=== PATIENT | male | born 1960 | race African-American/Black ===

== ENCOUNTER 2021-05-10 18:45 | Observation (INO) | payer SELFPAY ==
[2021-05-10 18:51] VITALS: BMI 25.4
[2021-05-10] MEDS ORDERED: ACETAMINOPHEN 1000 MG/100 ML BAG IVPB ONE (20:43)
[2021-05-10] MEDS ORDERED: ACETAMINOPHEN INJECTION 100 ML IVPB ONE (20:45)
[2021-05-10] MEDS ORDERED: morphine CARPU-JECT 4 MG/1 ML DISP.SYRIN IVPUSH ONE (22:47)
[2021-05-10] MEDS ORDERED: morphine SULFATE 4 MG/ML VIAL ONE (23:35)
[2021-05-11] MEDS ORDERED: ACETAMINOPHEN 325 MG TABLET (FP) PO PRN ×2 (02:27→07:31)
[2021-05-11] MEDS ORDERED: LIDOCAINE 5% TOPICAL PATCH TP ONE (02:35)
[2021-05-11 07:39] LABS: BASO % 1.1 % (0-2.0); EOS % 4.8 % (0-4.5); HEMATOCRIT 47.2 % (35.4-49); HEMOGLOBIN 15.4 GM/dL (11.7-16.9); LYMPH % 39.4 % (8-40); MCH 29.4 pg (25.7-33.7); MCHC 32.7 g/dl (32.0-35.9); MEAN CELL VOLUME 89.9 fl (80-96); MEAN PLT VOLUME 9.8 fl (7.5-11.1); MONO % 15.8 % (3.8-10.2); NEUT % 38.9 % (42.8-82.8); PLATELET COUNT 186 10^3/uL (134-434); RBC 5.25 M/mm3 (4.00-5.60); RDW 13.3 % (11.9-15.9)
[2021-05-11 07:46] LABS: CALCIUM 9.4 mg/dL (8.5-10.1)
[2021-05-11 07:47] LABS: ALBUMIN 3.7 g/dl (3.4-5.0); BLOOD UREA NITROGEN 11.6 mg/dL (7-18); MAGNESIUM 2.1 mg/dL (1.8-2.4)
[2021-05-11 07:50] LABS: CREATININE 0.9 mg/dL (0.55-1.3)
[2021-05-11 07:51] LABS: BILIRUBIN,TOTAL 0.4 mg/dL (0.2-1); TOT PROT 7.8 g/dl (6.4-8.2)
[2021-05-11] MEDS ORDERED: LIDOCAINE 5% TOPICAL PATCH ONE (09:20)
[2021-05-11] MEDS: LIDOCAINE 5% TOPICAL PATCH TP SCH (10:12)
[2021-05-11] MEDS ORDERED: ACETAMINOPHEN 1000 MG/100 ML BAG IVPB PRN ×2 (11:55→11:59)
[2021-05-11] MEDS ORDERED: oxyCODONE HCL 5 MG TABLET PO PRN (11:58)
[2021-05-11] MEDS: oxyCODONE HCL 5 MG TABLET PO PRN ×2 (14:28→22:32)
[2021-05-11] MEDS ORDERED: LIDOCAINE PATCH REMOVAL MC ONE (16:00)
[2021-05-11] MEDS ORDERED: LIDOCAINE PATCH REMOVAL MC SCH (22:00)
[2021-05-11] MEDS: ACETAMINOPHEN 325 MG TABLET (FP) PO PRN (22:31)
[2021-05-12 09:21] LABS: HEMATOCRIT 44.4 % (35.4-49); HEMOGLOBIN 14.7 GM/dL (11.7-16.9); MCH 29.6 pg (25.7-33.7); MCHC 33.2 g/dl (32.0-35.9); MEAN CELL VOLUME 89.1 fl (80-96); MEAN PLT VOLUME 9.1 fl (7.5-11.1); PLATELET COUNT 179 10^3/uL (134-434); RBC 4.98 M/mm3 (4.00-5.60); RDW 13.2 % (11.9-15.9)
[2021-05-12 09:35] LABS: CALCIUM 9.1 mg/dL (8.5-10.1)
[2021-05-12 09:36] LABS: ALBUMIN 3.3 g/dl (3.4-5.0); BLOOD UREA NITROGEN 13.9 mg/dL (7-18)
[2021-05-12 09:39] LABS: CREATININE 0.9 mg/dL (0.55-1.3)
[2021-05-12 09:40] LABS: BILIRUBIN,TOTAL 0.5 mg/dL (0.2-1)
[2021-05-12 09:41] LABS: TOT PROT 6.9 g/dl (6.4-8.2)
[2021-05-12] MEDS ORDERED: NAPROXEN 500 MG TABLET PO PRN (10:15)
[2021-05-12] MEDS ORDERED: NAPROXEN 250 MG TABLET PO PRN (10:16)
[2021-05-12] MEDS: LIDOCAINE 5% TOPICAL PATCH TP SCH (10:31)
[2021-05-12] MEDS: oxyCODONE HCL 5 MG TABLET PO PRN (10:34)
[2021-05-12] MEDS: ACETAMINOPHEN 325 MG TABLET (FP) PO PRN (10:35)
[2021-05-12 13:08] LABS: PH,URINE 6.5 (5.0-8.0); URINE APPEARANCE CLEAR; URINE BILIRUBIN NEGATIVE (NEGATIVE); URINE COLOR YELLOW; URINE GLUCOSE (UA) NEGATIVE (NEGATIVE); URINE KETONE NEGATIVE (NEGATIVE); URINE LEUK ESTERASE NEGATIVE (NEGATIVE); URINE NITRITE NEGATIVE (NEGATIVE); URINE PROTEIN NEGATIVE (NEGATIVE)
[2021-05-12 18:20] VITALS: BP 116/70; PULSE 62; TEMP 98
== END 2021-05-12 18:18 | disposition home or self-care (01) ==
LOC: JERFT 18:45 → JERBED 05-11 01:48 → INTOOBSV 05-11 01:48 → J7W 05-11 11:40
PROVIDERS: ADMIT Internal Medicine; ATTEND Internal Medicine
PROC: 3E033NZ Introduction of Analgesics, Hypnotics, Sedatives into Peripheral Vein, Percutaneous Approach (ICD-10-PCS; principal; 2021-05-11)
DX: S22.49XA Multiple fractures of ribs, unspecified side, initial encounter for closed fracture (principal); R26.2 Difficulty in walking, not elsewhere classified; W18.39XA Other fall on same level, initial encounter; Y93.89 Activity, other specified; Y92.002 Bathroom of unspecified non-institutional (private) residence as the place of occurrence of the external cause; R74.01 Elevation of levels of liver transaminase levels; K80.80 Other cholelithiasis without obstruction; Z29.9 Encounter for prophylactic measures, unspecified; F17.210 Nicotine dependence, cigarettes, uncomplicated
CPT/HCPCS: 36415; 71250-TC; 72131-TC; 80053; 80061; 81003; 82962; 83735; 84100; 84443; 85025; 85027; 94010; 97116-GP; 97162-GP; 99285-25; C9803; G0378; J0131; U0003; U0005

== ENCOUNTER 2021-06-07 10:28 | Emergency (ER) | payer SELFPAY ==
[2021-06-07 10:36] VITALS: BMI 24.8
[2021-06-07] MEDS ORDERED: KETOROLAC TROMETHAMINE 30 MG/1 ML VIAL IM ONE (11:08)
[2021-06-07] MEDS ORDERED: KETOROLAC TROMETHAMINE 30 MG/1 ML VIAL ONE (11:09)
[2021-06-07] MEDS ORDERED: AZITHROMYCIN 250 MG TABLET PO ONE (13:04)
[2021-06-07] MEDS ORDERED: AMOXICILLIN 500 MG CAPSULE (FP) PO ONE (13:05)
[2021-06-07 13:09] VITALS: BP 97/69; PULSE 85; TEMP 98.1
[2021-06-07] MEDS ORDERED: AZITHROMYCIN 500 MG TABLET ONE (13:11)
[2021-06-07] MEDS ORDERED: AMOXICILLIN 250 MG CAPSULE ONE (13:12)
== END 2021-06-07 13:22 | disposition home or self-care (01) ==
LOC: JERFT 10:28
PROC: 3E023GC Introduction of Other Therapeutic Substance into Muscle, Percutaneous Approach (ICD-10-PCS; principal; 2021-06-07)
DX: S22.41XA Multiple fractures of ribs, right side, initial encounter for closed fracture (principal); M54.89 Other dorsalgia; W01.0XXA Fall on same level from slipping, tripping and stumbling without subsequent striking against object, initial encounter
CPT/HCPCS: 71046-TC-FY; 99284-25

== ENCOUNTER 2023-07-26 14:43 | Inpatient (IN) | payer OTHER ==
[2023-07-26 14:49] VITALS: BMI 24.8
[2023-07-26 16:03] LABS: BASO % 0.8 % (0-2.0); EOS % 3.9 % (0-4.5); HEMATOCRIT 45.2 % (35.4-49); HEMOGLOBIN 15.5 GM/dL (11.7-16.9); LYMPH % 35.7 % (8-40); MCH 30.5 pg (25.7-33.7); MCHC 34.4 g/dl (32.0-35.9); MEAN CELL VOLUME 88.7 fl (80-96); MEAN PLT VOLUME 8.3 fl (7.5-11.1); MONO % 8.2 % (3.8-10.2); NEUT % 51.4 % (42.8-82.8); PLATELET COUNT 245 10^3/uL (134-434); RDW 13.1 % (11.9-15.9); WHITE BLOOD COUNT 7.4 K/mm3 (4.0-10.0)
[2023-07-26 16:05] LABS: INR 1.03 (0.83-1.09)
[2023-07-26 16:08] LABS: ACTIVATED PTT 36.6 SECONDS (25.2-36.5)
[2023-07-26 16:41] LABS: ALBUMIN 3.8 g/dl (3.4-5.0); BLOOD UREA NITROGEN 13.6 mg/dL (7-18); CALCIUM 9.2 mg/dL (8.5-10.1)
[2023-07-26 16:44] LABS: CREATININE 1.3 mg/dL (0.55-1.3)
[2023-07-26 16:46] LABS: BILIRUBIN,TOTAL 0.4 mg/dL (0.2-1); TOT PROT 7.7 g/dl (6.4-8.2)
[2023-07-26] MEDS ORDERED: IOHEXOL (OMNIPAQUE PO) 12 MG/ML - 500 ML BOTTLE PO ONE (16:59)
[2023-07-26] MEDS ORDERED: ACETAMINOPHEN 325 MG TABLET (FP) PO PRN (20:17)
[2023-07-27 10:00] LABS: BASO % 1.2 % (0-2.0); EOS % 5.6 % (0-4.5); HEMATOCRIT 45.6 % (35.4-49); HEMOGLOBIN 15.2 GM/dL (11.7-16.9); LYMPH % 42.6 % (8-40); MCHC 33.3 g/dl (32.0-35.9); MEAN PLT VOLUME 8.6 fl (7.5-11.1); MONO % 8.9 % (3.8-10.2); NEUT % 41.7 % (42.8-82.8); PLATELET COUNT 216 10^3/uL (134-434); RBC 5.07 M/mm3 (4.00-5.60)
[2023-07-27 10:41] LABS: POTASSIUM 4.4 mmol/L (3.5-5.1)
[2023-07-27 11:02] LABS: BLOOD UREA NITROGEN 13.4 mg/dL (7-18); CALCIUM 9.4 mg/dL (8.5-10.1); MAGNESIUM 2.2 mg/dL (1.8-2.4)
[2023-07-27 11:03] LABS: ALBUMIN 3.6 g/dl (3.4-5.0)
[2023-07-27 11:05] LABS: PHOSPHOROUS 3.6 mg/dL (2.5-4.9)
[2023-07-27 11:06] LABS: CREATININE 1.1 mg/dL (0.55-1.3)
[2023-07-27 11:07] LABS: TOT PROT 7.6 g/dl (6.4-8.2)
[2023-07-27 11:09] LABS: BILIRUBIN,TOTAL 0.6 mg/dL (0.2-1)
[2023-07-27] MEDS: LACTATED RINGERS SOLUTION 1,000 ML/1,000 ML INFUS.BAG IV SCH ×2 (13:28→21:48)
[2023-07-27] MEDS: NICOTINE 14 MG/24 HOURS TOPICAL PATCH TD SCH (13:29)
[2023-07-27] MEDS ORDERED: HEPARIN NA (PORCINE) 5,000 UNITS/ML 1ML VIAL ONE ×2 (16:52→17:43)
[2023-07-27] MEDS ORDERED: LIDOCAINE HCL 1%, 10 MG/ML (20ML VIAL) ONE ×2 (16:52→17:06)
[2023-07-27] MEDS ORDERED: PROPOFOL 20 ML ONE (17:02)
[2023-07-27] MEDS ORDERED: FENTANYL CITRATE/PF 50 MCG/ML VIAL ONE (17:02)
[2023-07-27] MEDS ORDERED: MIDAZOLAM HCL 2 MG/2 ML SINGLE DOSE VIAL ONE (17:02)
[2023-07-27] MEDS ORDERED: oxyCODONE HCL 5 MG TABLET PO PRN (17:06)
[2023-07-27] MEDS ORDERED: ONDANSETRON 4 MG/2 ML VIAL IVPUSH PRN ×2 (17:06→18:58)
[2023-07-27] MEDS ORDERED: ceFAZolin SODIUM 1 GM VIAL ONE (17:18)
[2023-07-27] MEDS ORDERED: LIDOCAINE HCL 2% 100 MG/5 ML DISP.SYRIN ONE (17:18)
[2023-07-27] MEDS: ceFAZolin SODIUM 1 GM VIAL IVPB ONE (17:19)
[2023-07-27] MEDS ORDERED: KETOROLAC TROMETHAMINE 30 MG/1 ML VIAL ONE (17:59)
[2023-07-27] MEDS ORDERED: ONDANSETRON 4 MG/2 ML VIAL ONE (17:59)
[2023-07-27] MEDS: LIDOCAINE HCL 1%, 10 MG/ML (20ML VIAL) INF ONE (18:11)
[2023-07-27] MEDS ORDERED: ACETAMINOPHEN 325 MG TABLET (FP) PO PRN (18:58)
[2023-07-27] MEDS ORDERED: CLOPIDOGREL BISULFATE 75 MG TABLET (FP) ONE (19:03)
[2023-07-27] MEDS: CLOPIDOGREL BISULFATE 75 MG TABLET (FP) PO SCH (19:30)
[2023-07-27 21:54] VITALS: RESP 18
[2023-07-28 06:12] VITALS: BP 140/83; PULSE 95; TEMP 98.1
[2023-07-28] MEDS: oxyCODONE HCL 5 MG TABLET PO PRN (08:34)
[2023-07-28 08:56] LABS: BASO % 0.7 % (0-2.0); HEMATOCRIT 41.2 % (35.4-49); HEMOGLOBIN 13.8 GM/dL (11.7-16.9); LYMPH % 27.6 % (8-40); MCHC 33.6 g/dl (32.0-35.9); MEAN CELL VOLUME 89.3 fl (80-96); MEAN PLT VOLUME 8.5 fl (7.5-11.1); MONO % 8.1 % (3.8-10.2); NEUT % 59.6 % (42.8-82.8); PLATELET COUNT 171 10^3/uL (134-434); RBC 4.61 M/mm3 (4.00-5.60); RDW 13.1 % (11.9-15.9); WHITE BLOOD COUNT 5.6 K/mm3 (4.0-10.0)
[2023-07-28 09:12] LABS: POTASSIUM 4.3 mmol/L (3.5-5.1)
[2023-07-28 09:15] LABS: CALCIUM 8.7 mg/dL (8.5-10.1)
[2023-07-28 09:16] LABS: ALBUMIN 3.1 g/dl (3.4-5.0); BLOOD UREA NITROGEN 19.4 mg/dL (7-18)
[2023-07-28 09:20] LABS: BILIRUBIN,TOTAL 0.5 mg/dL (0.2-1); TOT PROT 6.4 g/dl (6.4-8.2)
[2023-07-28] MEDS: NICOTINE 14 MG/24 HOURS TOPICAL PATCH TD SCH (09:53)
[2023-07-28] MEDS ORDERED: ATORVASTATIN CA 20 MG TABLET (FP) PO SCH (22:00)
== END 2023-07-28 12:14 | disposition home or self-care (01) | DRG 181 ==
LOC: JERFT 14:43 → JER 14:43 → JERBED 18:56 → J5S 23:56
PROVIDERS: ADMIT Internal Medicine; ATTEND Nurse Practitioner
PROC: B42FZZZ Computerized Tomography (CT Scan) of Right Lower Extremity Arteries (ICD-10-PCS; 2023-07-27)
PROC: 04CK3ZZ Extirpation of Matter from Right Femoral Artery, Percutaneous Approach (ICD-10-PCS; 2023-07-27)
PROC: 04CK3ZZ Extirpation of Matter from Right Femoral Artery, Percutaneous Approach (ICD-10-PCS; 2023-07-27)
PROC: 047K3ZZ Dilation of Right Femoral Artery, Percutaneous Approach (ICD-10-PCS; 2023-07-27)
PROC: 047K3DZ Dilation of Right Femoral Artery with Intraluminal Device, Percutaneous Approach (ICD-10-PCS; 2023-07-27)
PROC: B40DYZZ Plain Radiography of Aorta and Bilateral Lower Extremity Arteries using Other Contrast (ICD-10-PCS; principal; 2023-07-27 17:00)
DX: I70.211 Atherosclerosis of native arteries of extremities with intermittent claudication, right leg (principal); F17.210 Nicotine dependence, cigarettes, uncomplicated; I77.1 Stricture of artery
CPT/HCPCS: 36415; 73706-TC-RT; 76000-TC-FY; 80053; 80061; 83735; 84100; 85025; 85610; 85730; 86850; 86900; 86901; 93005; 93010; 94760; 99285-25; C1760; C1876; C1897; J1644

== ENCOUNTER 2023-09-29 11:05 | Emergency (ER) | payer OTHER ==
[2023-09-29 11:24] VITALS: BP 126/84; PULSE 80; RESP 17; TEMP 98.7; BMI 58.2
[2023-09-29] MEDS ORDERED: KETOROLAC TROMETHAMINE 30 MG/1 ML VIAL ONE (11:45)
[2023-09-29] MEDS: KETOROLAC TROMETHAMINE 30 MG/1 ML VIAL IM ONE (11:49)
[2023-09-29] MEDS ORDERED: predniSONE 20 MG TABLET (UD) ONE (11:49)
[2023-09-29] MEDS: predniSONE 20 MG TABLET (UD) PO ONE (11:50)
== END 2023-09-29 12:54 | disposition home or self-care (01) ==
LOC: JERFT 11:05
PROC: 3E0233Z Introduction of Anti-inflammatory into Muscle, Percutaneous Approach (ICD-10-PCS; principal; 2023-09-29)
DX: M25.474 Effusion, right foot (principal); M10.9 Gout, unspecified
CPT/HCPCS: 73630-TC-RT-FY; 99284-25

== ENCOUNTER 2024-02-28 10:29 | Emergency (ER) | payer OTHER ==
[2024-02-28 10:54] VITALS: BP 119/84; PULSE 86; RESP 16; TEMP 98.4; BMI 24.5
[2024-02-28] MEDS ORDERED: LIDOCAINE 4% PATCH TP ONE (11:17)
[2024-02-28] MEDS ORDERED: ACETAMINOPHEN 325 MG TABLET (FP) ONE (11:17)
[2024-02-28] MEDS ORDERED: ACETAMINOPHEN 500 MG TABLET (FP) ONE (11:19)
[2024-02-28] MEDS: LIDOCAINE 4% PATCH TP ONE (11:36)
[2024-02-28] MEDS: ACETAMINOPHEN 500 MG TABLET (FP) PO ONE ×2 (11:36)
[2024-02-28] MEDS ORDERED: LIDOCAINE PATCH REMOVAL MC SCH (22:00)
== END 2024-02-28 13:03 | disposition home or self-care (01) ==
LOC: JERFT 10:29
DX: M54.2 Cervicalgia (principal); M54.6 Pain in thoracic spine; M25.511 Pain in right shoulder
CPT/HCPCS: 71046-TC-FY; 73030-TC-RT-FY; 99284-25

== ENCOUNTER 2024-04-13 11:52 | Emergency (ER) | payer OTHER ==
[2024-04-13 12:16] VITALS: TEMP 98; BMI 22.8
[2024-04-13] MEDS ORDERED: ACETAMINOPHEN INJECTION 100 ML ONE (13:53)
[2024-04-13] MEDS: ACETAMINOPHEN 1000 MG/100 ML BAG IVPB ONE (14:05)
[2024-04-13 14:19] LABS: BASO % 0.6 % (0-2.0); EOS % 2.6 % (0-4.5); HEMATOCRIT 43.4 % (35.4-49); HEMOGLOBIN 14.4 GM/dL (11.7-16.9); LYMPH % 37.4 % (8-40); MCH 29.8 pg (25.7-33.7); MCHC 33.2 g/dl (32.0-35.9); MEAN CELL VOLUME 89.8 fl (80-96); MEAN PLT VOLUME 8.3 fl (7.5-11.1); MONO % 9.4 % (3.8-10.2); PLATELET COUNT 248 10^3/uL (134-434); RBC 4.83 M/mm3 (4.00-5.60); RDW 13.6 % (11.9-15.9)
[2024-04-13 14:25] LABS: INR 0.96 (0.83-1.09); PROTHROMBIN TIME (PATIENT) 11.1 SEC (9.7-13.0)
[2024-04-13 14:48] LABS: POTASSIUM 4.9 mmol/L (3.5-5.1)
[2024-04-13 14:50] LABS: ALBUMIN 3.8 g/dl (3.4-5.0); BLOOD UREA NITROGEN 9.1 mg/dL (7-18); CALCIUM 9.6 mg/dL (8.5-10.1)
[2024-04-13 14:55] LABS: BILIRUBIN,TOTAL 0.5 mg/dL (0.2-1); TOT PROT 7.7 g/dl (6.4-8.2)
[2024-04-13 22:28] VITALS: BP 110/73; PULSE 55; RESP 18
== END 2024-04-13 23:53 | disposition home or self-care (01) ==
LOC: JER 11:52
PROC: 3E033NZ Introduction of Analgesics, Hypnotics, Sedatives into Peripheral Vein, Percutaneous Approach (ICD-10-PCS; principal; 2024-04-13)
DX: I73.9 Peripheral vascular disease, unspecified (principal); R93.6 Abnormal findings on diagnostic imaging of limbs; R07.89 Other chest pain
CPT/HCPCS: 36415; 75635-TC; 80053; 84484; 85025; 85610; 93005; 93010; 93971-TC; 99285-25; J0131; Q9967

== ENCOUNTER 2024-04-16 09:07 | Inpatient (IN) | payer OTHER ==
[2024-04-16] MEDS ORDERED: ACETAMINOPHEN INJECTION 100 ML ONE (12:06)
[2024-04-16 12:46] LABS: BASO % 0.9 % (0-2.0); EOS % 2.2 % (0-4.5); HEMATOCRIT 44.1 % (35.4-49); HEMOGLOBIN 14.5 GM/dL (11.7-16.9); LYMPH % 33.5 % (8-40); MCH 29.5 pg (25.7-33.7); MEAN CELL VOLUME 89.4 fl (80-96); MONO % 7.5 % (3.8-10.2); NEUT % 55.9 % (42.8-82.8); PLATELET COUNT 247 10^3/uL (134-434); RBC 4.93 M/mm3 (4.00-5.60); RDW 13.5 % (11.9-15.9); WHITE BLOOD COUNT 5.9 K/mm3 (4.0-10.0)
[2024-04-16] MEDS: ACETAMINOPHEN 1000 MG/100 ML BAG IVPB ONE (12:47)
[2024-04-16 12:56] LABS: INR 1.05 (0.83-1.09); PROTHROMBIN TIME (PATIENT) 11.8 SEC (9.7-13.0)
[2024-04-16 13:09] LABS: POTASSIUM 4.4 mmol/L (3.5-5.1)
[2024-04-16 13:11] LABS: CALCIUM 9.6 mg/dL (8.5-10.1)
[2024-04-16 13:12] LABS: ALBUMIN 3.7 g/dl (3.4-5.0); BLOOD UREA NITROGEN 9.8 mg/dL (7-18)
[2024-04-16 13:16] LABS: BILIRUBIN,TOTAL 0.6 mg/dL (0.2-1); TOT PROT 7.6 g/dl (6.4-8.2)
[2024-04-16 16:43] VITALS: BMI 24.8
[2024-04-16] MEDS: NICOTINE 14 MG/24 HOURS TOPICAL PATCH TD SCH (19:08)
[2024-04-16] MEDS ORDERED: ACETAMINOPHEN 1000 MG/100 ML BAG IVPB PRN (21:53)
[2024-04-16] MEDS: ATORVASTATIN CA 40 MG TABLET (FP) PO SCH (22:25)
[2024-04-17] MEDS: CLOPIDOGREL BISULFATE 75 MG TABLET (FP) PO SCH (09:08)
[2024-04-17] MEDS: ENOXAPARIN NA (PORCINE) 40 MG/0.4 ML DISP.SYRIN SQ SCH (09:08)
[2024-04-17 09:43] LABS: HEMATOCRIT 42.7 % (35.4-49); HEMOGLOBIN 14.4 GM/dL (11.7-16.9); MCH 30.1 pg (25.7-33.7); MCHC 33.7 g/dl (32.0-35.9); MEAN CELL VOLUME 89.2 fl (80-96); MEAN PLT VOLUME 8.7 fl (7.5-11.1); PLATELET COUNT 212 10^3/uL (134-434); RBC 4.78 M/mm3 (4.00-5.60); RDW 13.3 % (11.9-15.9); WHITE BLOOD COUNT 5.3 K/mm3 (4.0-10.0)
[2024-04-17 09:54] LABS: POTASSIUM 4.2 mmol/L (3.5-5.1)
[2024-04-17 09:58] LABS: ALBUMIN 3.3 g/dl (3.4-5.0)
[2024-04-17 10:00] LABS: BLOOD UREA NITROGEN 12.3 mg/dL (7-18)
[2024-04-17 10:01] LABS: CALCIUM 9.1 mg/dL (8.5-10.1)
[2024-04-17 10:02] LABS: MAGNESIUM 1.9 mg/dL (1.8-2.4)
[2024-04-17 10:03] LABS: BILIRUBIN,TOTAL 0.6 mg/dL (0.2-1); CREATININE 0.9 mg/dL (0.55-1.3); TOT PROT 6.7 g/dl (6.4-8.2)
[2024-04-17 10:04] LABS: PHOSPHOROUS 3.6 mg/dL (2.5-4.9)
[2024-04-18 07:49] LABS: POTASSIUM 4.2 mmol/L (3.5-5.1)
[2024-04-18 08:00] LABS: EOS % 3.5 % (0-4.5); HEMATOCRIT 41.6 % (35.4-49); HEMOGLOBIN 13.9 GM/dL (11.7-16.9); MCH 29.9 pg (25.7-33.7); MCHC 33.3 g/dl (32.0-35.9); MEAN CELL VOLUME 89.7 fl (80-96); MEAN PLT VOLUME 8.4 fl (7.5-11.1); MONO % 9.1 % (3.8-10.2); NEUT % 48.4 % (42.8-82.8); PLATELET COUNT 213 10^3/uL (134-434); RBC 4.64 M/mm3 (4.00-5.60); RDW 13.4 % (11.9-15.9); WHITE BLOOD COUNT 4.7 K/mm3 (4.0-10.0)
[2024-04-18 08:10] LABS: ALBUMIN 3.4 g/dl (3.4-5.0)
[2024-04-18 08:11] LABS: BLOOD UREA NITROGEN 12.2 mg/dL (7-18); CALCIUM 9.4 mg/dL (8.5-10.1)
[2024-04-18 08:14] LABS: CREATININE 0.9 mg/dL (0.55-1.3)
[2024-04-18 08:15] LABS: BILIRUBIN,TOTAL 0.5 mg/dL (0.2-1)
[2024-04-18 08:16] LABS: TOT PROT 6.8 g/dl (6.4-8.2)
[2024-04-18 09:25] LABS: HIV INTERPRETATION PRESUMPTIVE POSITIVE (NEGATIVE)
[2024-04-18] MEDS ORDERED: HEPARIN NA (PORCINE) 5,000 UNITS/ML 1ML VIAL ONE ×2 (15:21→17:49)
[2024-04-18] MEDS ORDERED: LIDOCAINE HCL 1%, 10 MG/ML (20ML VIAL) ONE (15:21)
[2024-04-18] MEDS: LIDOCAINE HCL 1%, 10 MG/ML (20ML VIAL) NR ONE (16:05)
[2024-04-18] MEDS: HEPARIN NA (PORCINE) 5,000 UNITS/ML 1ML VIAL SQ ONE (16:05)
[2024-04-18] MEDS ORDERED: PROPOFOL 20 ML ONE ×3 (16:47→18:31)
[2024-04-18] MEDS ORDERED: MIDAZOLAM HCL 2 MG/2 ML SINGLE DOSE VIAL ONE (16:48)
[2024-04-18] MEDS ORDERED: ONDANSETRON 4 MG/2 ML VIAL IVPUSH PRN ×2 (17:00→19:28)
[2024-04-18] MEDS ORDERED: SODIUM CHLORIDE 1,000 ML IV SCH (17:00)
[2024-04-18] MEDS ORDERED: oxyCODONE HCL 5 MG TABLET PO PRN (17:00)
[2024-04-18] MEDS ORDERED: ceFAZolin SODIUM 1 GM VIAL ONE (17:38)
[2024-04-18] MEDS: APIXABAN 5 MG TABLET PO SCH (19:31)
[2024-04-18] MEDS: ATORVASTATIN CA 40 MG TABLET (FP) PO SCH (22:15)
[2024-04-18] MEDS: SODIUM CHLORIDE 1,000 ML IV SCH (22:15)
[2024-04-19 09:22] LABS: BASO % 0.4 % (0-2.0); EOS % 1.5 % (0-4.5); HEMATOCRIT 37.8 % (35.4-49); LYMPH % 16.8 % (8-40); MCH 30.3 pg (25.7-33.7); MCHC 34.3 g/dl (32.0-35.9); MEAN CELL VOLUME 88.2 fl (80-96); MEAN PLT VOLUME 8.6 fl (7.5-11.1); MONO % 7.4 % (3.8-10.2); NEUT % 73.9 % (42.8-82.8); PLATELET COUNT 206 10^3/uL (134-434); POTASSIUM 3.9 mmol/L (3.5-5.1); RBC 4.28 M/mm3 (4.00-5.60); RDW 13.4 % (11.9-15.9); WHITE BLOOD COUNT 7.2 K/mm3 (4.0-10.0)
[2024-04-19 09:37] LABS: ALBUMIN 3.3 g/dl (3.4-5.0); BLOOD UREA NITROGEN 13.4 mg/dL (7-18); CALCIUM 8.6 mg/dL (8.5-10.1); MAGNESIUM 1.7 mg/dL (1.8-2.4)
[2024-04-19 09:40] LABS: CREATININE 0.8 mg/dL (0.55-1.3)
[2024-04-19 09:42] LABS: BILIRUBIN,TOTAL 0.8 mg/dL (0.2-1); TOT PROT 6.6 g/dl (6.4-8.2)
[2024-04-19] MEDS: oxyCODONE HCL 5 MG TABLET PO PRN (09:57)
[2024-04-19] MEDS: NICOTINE 14 MG/24 HOURS TOPICAL PATCH TD SCH (09:57)
[2024-04-19] MEDS: MAGNESIUM OXIDE 400 MG TABLET (FP) PO SCH (12:14)
[2024-04-19] MEDS: ACETAMINOPHEN 325 MG TABLET (FP) PO SCH (18:06)
[2024-04-20 08:32] LABS: BASO % 0.6 % (0-2.0); EOS % 2.6 % (0-4.5); HEMATOCRIT 39.2 % (35.4-49); LYMPH % 25.9 % (8-40); MCH 29.6 pg (25.7-33.7); MCHC 33.2 g/dl (32.0-35.9); MEAN CELL VOLUME 89.1 fl (80-96); MEAN PLT VOLUME 8.7 fl (7.5-11.1); MONO % 10.8 % (3.8-10.2); NEUT % 60.1 % (42.8-82.8); PLATELET COUNT 198 10^3/uL (134-434); WHITE BLOOD COUNT 7.5 K/mm3 (4.0-10.0)
[2024-04-20 08:56] LABS: POTASSIUM 4.2 mmol/L (3.5-5.1)
[2024-04-20 09:01] LABS: ALBUMIN 3.4 g/dl (3.4-5.0); BLOOD UREA NITROGEN 9.7 mg/dL (7-18); MAGNESIUM 1.7 mg/dL (1.8-2.4)
[2024-04-20 09:02] LABS: CALCIUM 8.7 mg/dL (8.5-10.1)
[2024-04-20 09:04] LABS: CREATININE 0.9 mg/dL (0.55-1.3)
[2024-04-20 09:05] LABS: BILIRUBIN,TOTAL 0.8 mg/dL (0.2-1)
[2024-04-20 09:06] LABS: TOT PROT 6.8 g/dl (6.4-8.2)
[2024-04-20 10:08] VITALS: PULSE 66
[2024-04-20] MEDS: MAGNESIUM 2GM/50ML STERILE WATER IVPB IVPB ONE (10:30)
[2024-04-20 15:21] VITALS: BP 124/77; RESP 18; TEMP 98.2
== END 2024-04-20 16:31 | disposition home or self-care (01) | DRG 181 ==
LOC: JER 09:07 → JERBED 13:52 → J7W 15:57
PROVIDERS: ADMIT Internal Medicine
PROC: 04CK3ZZ Extirpation of Matter from Right Femoral Artery, Percutaneous Approach (ICD-10-PCS; 2024-04-18)
PROC: 047K3ZZ Dilation of Right Femoral Artery, Percutaneous Approach (ICD-10-PCS; 2024-04-18)
PROC: 04CP3ZZ Extirpation of Matter from Right Anterior Tibial Artery, Percutaneous Approach (ICD-10-PCS; 2024-04-18)
PROC: 047K3ZZ Dilation of Right Femoral Artery, Percutaneous Approach (ICD-10-PCS; 2024-04-18)
PROC: 3E05317 Introduction of Other Thrombolytic into Peripheral Artery, Percutaneous Approach (ICD-10-PCS; 2024-04-18)
PROC: B41DZZZ Fluoroscopy of Aorta and Bilateral Lower Extremity Arteries (ICD-10-PCS; 2024-04-18)
PROC: 047 Lower Arteries, Dilation (ICD-10-PCS; principal; 2024-04-18 16:30)
DX: I70.211 Atherosclerosis of native arteries of extremities with intermittent claudication, right leg (principal); I73.9 Peripheral vascular disease, unspecified; I77.1 Stricture of artery; Z21 Asymptomatic human immunodeficiency virus [HIV] infection status; F17.210 Nicotine dependence, cigarettes, uncomplicated; I71.40 Abdominal aortic aneurysm, without rupture, unspecified
CPT/HCPCS: 36415; 76000-TC-FY; 80053; 82310; 83605; 83735; 84100; 85025; 85027; 85610; 85730; 86359; 86360; 86780; 86803; 86850; 86900; 86901; 87389; 87536; 93005; 93010; 94760; 99285-25; C1760; C1876; J0131; J1644

== ENCOUNTER 2024-10-30 08:42 | Inpatient (IN) | payer OTHER ==
[2024-10-30 09:37] LABS: RDW 13.7 % (12.2-16.4)
[2024-10-30 09:38] LABS: MCHC 33.4 g/dl (32.3-36.5); MEAN CELL VOLUME 88.9 fl (79.0-92.2); MEAN PLT VOLUME 10.0 fl (9.4-12.4)
[2024-10-30 09:47] LABS: INR 1.04 (0.83-1.09); PROTHROMBIN TIME (PATIENT) 11.3 SEC (9.7-13.0)
[2024-10-30 09:50] LABS: ACTIVATED PTT 31.6 SECONDS (25.2-36.5)
[2024-10-30 11:18] LABS: CO2 26.0 mmol/L (21-32); GLUCOSE,RANDOM 112.0 mg/dL (74-106)
[2024-10-30 11:21] LABS: SGOT/AST 35.0 U/L (15-37); SGPT/ALT 47.0 U/L (13-61)
[2024-10-30 11:22] LABS: CREATININE 1.1 mg/dL (0.55-1.3)
[2024-10-30 11:24] LABS: ALK PHOS 70.0 U/L (45-117)
[2024-10-30 12:02] LABS: LDL CHOLESTEROL (ONLY SJRH) 146.0 mg/dL (5-100)
[2024-10-30 12:06] LABS: TOT PROT 6.7 g/dl (6.4-8.2)
[2024-10-30] MEDS: NICOTINE 7 MG/24 HOURS TOPICAL PATCH TD SCH (12:10)
[2024-10-30] MEDS: SODIUM CHLORIDE 1,000 ML IV SCH (12:10)
[2024-10-30 12:41] VITALS: BMI 25.5
[2024-10-30] MEDS: GABAPENTIN 300 MG CAPSULE PO SCH (14:22)
[2024-10-30] MEDS: ATORVASTATIN CA 40 MG TABLET (FP) PO SCH (21:10)
[2024-10-31 07:58] LABS: MCHC 33.1 g/dl (32.3-36.5); MEAN CELL VOLUME 89.7 fl (79.0-92.2); MEAN PLT VOLUME 11.0 fl (9.4-12.4); RDW 13.7 % (12.2-16.4)
[2024-10-31 08:45] LABS: GLUCOSE,RANDOM 94.0 mg/dL (74-106)
[2024-10-31 08:54] LABS: CO2 26.0 mmol/L (21-32)
[2024-10-31 08:58] LABS: CREATININE 1.0 mg/dL (0.55-1.3)
[2024-10-31] MEDS ORDERED: REGADENOSON 0.4 MG/5 ML PRE-FILLED SYRINGE IVPUSH ONE (10:06)
[2024-10-31] MEDS: REGADENOSON 0.4 MG/5 ML PRE-FILLED SYRINGE IVPUSH ONE (14:28)
[2024-10-31] MEDS: ACETAMINOPHEN 1000 MG/100 ML BAG IVPB PRN (19:38)
[2024-11-01 08:05] LABS: INR 1.03 (0.83-1.09); PROTHROMBIN TIME (PATIENT) 11.2 SEC (9.7-13.0)
[2024-11-01 08:07] LABS: MEAN CELL VOLUME 88.7 fl (79.0-92.2); MEAN PLT VOLUME 10.7 fl (9.4-12.4)
[2024-11-01 08:08] LABS: MCHC 33.1 g/dl (32.3-36.5); RDW 13.4 % (12.2-16.4)
[2024-11-01 08:51] LABS: CO2 26.0 mmol/L (21-32); GLUCOSE,RANDOM 95.0 mg/dL (74-106)
[2024-11-01 08:55] LABS: CREATININE 1.0 mg/dL (0.55-1.3); SGOT/AST 26.0 U/L (15-37); SGPT/ALT 35.0 U/L (13-61); TOT PROT 5.6 g/dl (6.4-8.2)
[2024-11-01 09:00] LABS: ALK PHOS 65.0 U/L (45-117)
[2024-11-01] MEDS: ABACAVIR/DOLUTEGRAVIR/LAMIVUDI (TRIUMEQ) TABLET PO SCH (12:05)
[2024-11-02 09:10] LABS: RDW 13.2 % (12.2-16.4)
[2024-11-02 09:12] LABS: MCHC 32.9 g/dl (32.3-36.5); MEAN CELL VOLUME 89.9 fl (79.0-92.2)
[2024-11-02 09:41] LABS: CO2 25.0 mmol/L (21-32); GLUCOSE,RANDOM 86.0 mg/dL (74-106)
[2024-11-02 09:44] LABS: CREATININE 1.0 mg/dL (0.55-1.3); SGOT/AST 31.0 U/L (15-37); SGPT/ALT 39.0 U/L (13-61)
[2024-11-02 09:46] LABS: TOT PROT 6.6 g/dl (6.4-8.2)
[2024-11-02 09:47] LABS: ALK PHOS 71.0 U/L (45-117)
[2024-11-02] MEDS ORDERED: ENOXAPARIN NA (PORCINE) 40 MG/0.4 ML DISP.SYRIN SQ SCH (10:00)
[2024-11-02] MEDS ORDERED: MAGNESIUM OXIDE 400 MG TABLET (FP) PO ONE (10:36)
[2024-11-02] MEDS: MAGNESIUM OXIDE 400 MG TABLET (FP) PO ONE (14:56)
[2024-11-02] MEDS ORDERED: ONDANSETRON 4 MG/2 ML VIAL IVPUSH PRN ×2 (15:31→19:36)
[2024-11-02] MEDS ORDERED: MIDAZOLAM HCL 2 MG/2 ML SINGLE DOSE VIAL ONE (15:41)
[2024-11-02] MEDS ORDERED: PROPOFOL 20 ML ONE ×2 (15:43→17:48)
[2024-11-02] MEDS: ceFAZolin 2 GRAM PREMIX BAG IVPB ONE (17:39)
[2024-11-02] MEDS: LIDOCAINE HCL 1%, 10 MG/ML (20ML VIAL) NR ONE (17:49)
[2024-11-02] MEDS ORDERED: ENOXAPARIN NA (PORCINE) 60 MG/0.6 ML DISP.SYRIN SQ SCH (19:05)
[2024-11-02] MEDS ORDERED: ENOXAPARIN NA (PORCINE) 60 MG/0.6 ML DISP.SYRIN SQ ONE (19:30)
[2024-11-02] MEDS: ENOXAPARIN NA (PORCINE) 80 MG/0.8 ML DISP.SYRIN SQ ONE (19:37)
[2024-11-02] MEDS: SODIUM CHLORIDE 1,000 ML IV SCH (20:22)
[2024-11-02] MEDS: ACETAMINOPHEN 1000 MG/100 ML BAG IVPB PRN (21:13)
[2024-11-02] MEDS: GABAPENTIN 300 MG CAPSULE PO SCH (21:14)
[2024-11-02] MEDS: ATORVASTATIN CA 40 MG TABLET (FP) PO SCH (21:14)
[2024-11-03] MEDS: LACTATED RINGERS SOLUTION 1,000 ML IV SCH ×2 (03:29)
[2024-11-03] MEDS: ENOXAPARIN NA (PORCINE) 80 MG/0.8 ML DISP.SYRIN SQ SCH (09:22)
[2024-11-03] MEDS: ABACAVIR/DOLUTEGRAVIR/LAMIVUDI (TRIUMEQ) TABLET PO SCH (09:22)
[2024-11-03] MEDS: NICOTINE 7 MG/24 HOURS TOPICAL PATCH TD SCH (09:22)
[2024-11-03 10:11] LABS: ABSOLUTE IMMATURE GRANULOCYTES 0.05 x10^3/uL (0.0-0.031); BASOPHILS # 0.03 x10^3/uL (0.01-0.08); EOSINOPHIL % 0.9 % (0.8-7.0); EOSINOPHILS # 0.04 x10^3/uL (0.04-0.54); MCHC 33.3 g/dl (32.3-36.5); MEAN CELL VOLUME 88.3 fl (79.0-92.2); MEAN PLT VOLUME 10.7 fl (9.4-12.4); MONOCYTE # 0.31 x10^3/uL (0.30-0.82); MONOCYTE % 6.6 % (5.3-12.2); RDW 13.2 % (12.2-16.4)
[2024-11-03 12:23] LABS: CO2 24.0 mmol/L (21-32)
[2024-11-03 12:24] LABS: GLUCOSE,RANDOM 70.0 mg/dL (74-106)
[2024-11-03 12:26] LABS: SGPT/ALT 34.0 U/L (13-61)
[2024-11-03 12:27] LABS: CREATININE 1.0 mg/dL (0.55-1.3); SGOT/AST 29.0 U/L (15-37)
[2024-11-03 12:28] LABS: TOT PROT 5.7 g/dl (6.4-8.2)
[2024-11-03 12:29] LABS: ALK PHOS 64.0 U/L (45-117)
[2024-11-03] MEDS: MAGNESIUM 2GM/50ML STERILE WATER IVPB IVPB ONE (15:11)
[2024-11-03] MEDS: MAGNESIUM OXIDE 400 MG TABLET (FP) PO ONE (16:44)
[2024-11-04 08:36] LABS: IMMATURE PLATELET FRACTION # 5.00 x10^3/uL; MCHC 33.6 g/dl (32.3-36.5); MEAN CELL VOLUME 87.6 fl (79.0-92.2); MEAN PLT VOLUME 10.9 fl (9.4-12.4); RDW 13.0 % (12.2-16.4)
[2024-11-04 08:44] LABS: CO2 26.0 mmol/L (21-32)
[2024-11-04 08:45] LABS: GLUCOSE,RANDOM 89.0 mg/dL (74-106)
[2024-11-04 08:47] LABS: SGOT/AST 28.0 U/L (15-37); SGPT/ALT 34.0 U/L (13-61)
[2024-11-04 08:48] LABS: CREATININE 1.0 mg/dL (0.55-1.3)
[2024-11-04 08:49] LABS: TOT PROT 6.2 g/dl (6.4-8.2)
[2024-11-04 08:50] LABS: ALK PHOS 65.0 U/L (45-117)
[2024-11-05 08:02] LABS: MCHC 33.7 g/dl (32.3-36.5); MEAN CELL VOLUME 87.4 fl (79.0-92.2); MEAN PLT VOLUME 10.7 fl (9.4-12.4); RDW 13.1 % (12.2-16.4)
[2024-11-05 08:18] LABS: CO2 26.0 mmol/L (21-32); GLUCOSE,RANDOM 94.0 mg/dL (74-106)
[2024-11-05 08:21] LABS: CREATININE 0.9 mg/dL (0.55-1.3); SGOT/AST 33.0 U/L (15-37); SGPT/ALT 41.0 U/L (13-61)
[2024-11-05 08:22] LABS: TOT PROT 6.5 g/dl (6.4-8.2)
[2024-11-05 08:24] LABS: ALK PHOS 72.0 U/L (45-117)
[2024-11-05 15:50] LABS: INR 1.06 (0.83-1.09); PROTHROMBIN TIME (PATIENT) 11.6 SEC (9.7-13.0)
[2024-11-05] MEDS: WARFARIN NA 5 MG TABLET PO ONE (17:19)
[2024-11-05] MEDS: ENOXAPARIN NA (PORCINE) 80 MG/0.8 ML DISP.SYRIN SQ SCH ×2 (18:41→21:12)
[2024-11-05] MEDS ORDERED: RIVAROXABAN 2.5 MG TABLET PO SCH (22:00)
[2024-11-05] MEDS: MELATONIN 5 MG TABLETS PO PRN (23:24)
[2024-11-06 09:04] LABS: INR 1.07 (0.83-1.09); PROTHROMBIN TIME (PATIENT) 11.8 SEC (9.7-13.0)
[2024-11-06 09:07] LABS: MCHC 34.0 g/dl (32.3-36.5); MEAN CELL VOLUME 86.5 fl (79.0-92.2); MEAN PLT VOLUME 10.5 fl (9.4-12.4); RDW 13.1 % (12.2-16.4)
[2024-11-06 09:31] LABS: GLUCOSE,RANDOM 109.0 mg/dL (74-106)
[2024-11-06 09:32] LABS: CO2 25.0 mmol/L (21-32)
[2024-11-06 09:35] LABS: CREATININE 1.1 mg/dL (0.55-1.3); SGOT/AST 39.0 U/L (15-37); SGPT/ALT 50.0 U/L (13-61)
[2024-11-06 09:36] LABS: TOT PROT 7.1 g/dl (6.4-8.2)
[2024-11-06 09:38] LABS: ALK PHOS 80.0 U/L (45-117)
[2024-11-06] MEDS ORDERED: ASPIRIN COATED 81 MG TABLET.EC PO SCH (10:00)
[2024-11-06] MEDS: WARFARIN NA 5 MG TABLET PO SCH (17:47)
[2024-11-06] MEDS ORDERED: WARFARIN NA 5 MG TABLET PO SCH (18:00)
[2024-11-06 22:31] VITALS: RESP 20
[2024-11-07 08:43] LABS: MCHC 33.3 g/dl (32.3-36.5); MEAN CELL VOLUME 88.0 fl (79.0-92.2); MEAN PLT VOLUME 10.4 fl (9.4-12.4); RDW 13.2 % (12.2-16.4)
[2024-11-07 08:51] LABS: INR 1.14 (0.83-1.09); PROTHROMBIN TIME (PATIENT) 12.4 SEC (9.7-13.0)
[2024-11-07 13:18] LABS: CO2 27.0 mmol/L (21-32); GLUCOSE,RANDOM 98.0 mg/dL (74-106)
[2024-11-07 13:21] LABS: CREATININE 1.2 mg/dL (0.55-1.3); SGOT/AST 41.0 U/L (15-37); SGPT/ALT 52.0 U/L (13-61)
[2024-11-07 13:22] LABS: TOT PROT 7.1 g/dl (6.4-8.2)
[2024-11-07 13:24] LABS: ALK PHOS 82.0 U/L (45-117)
[2024-11-07 14:31] VITALS: BP 108/76; PULSE 79; TEMP 98.2
== END 2024-11-07 14:51 | disposition home or self-care (01) | DRG 181 ==
LOC: JER 08:42 → JERBED 10:25 → J8W 11:52
PROVIDERS: ADMIT Student in an Organized Health Care Education/Training Program; ATTEND Nurse Practitioner Family
PROC: 04CP3ZZ Extirpation of Matter from Right Anterior Tibial Artery, Percutaneous Approach (ICD-10-PCS; 2024-11-02)
PROC: 047M34Z Dilation of Right Popliteal Artery with Drug-eluting Intraluminal Device, Percutaneous Approach (ICD-10-PCS; 2024-11-02)
PROC: 047K3ZZ Dilation of Right Femoral Artery, Percutaneous Approach (ICD-10-PCS; 2024-11-02)
PROC: B41DZZZ Fluoroscopy of Aorta and Bilateral Lower Extremity Arteries (ICD-10-PCS; 2024-11-02)
PROC: 04CK3ZZ Extirpation of Matter from Right Femoral Artery, Percutaneous Approach (ICD-10-PCS; principal; 2024-11-02 16:00)
DX: I70.211 Atherosclerosis of native arteries of extremities with intermittent claudication, right leg (principal); D69.6 Thrombocytopenia, unspecified; F17.210 Nicotine dependence, cigarettes, uncomplicated; I71.43 Infrarenal abdominal aortic aneurysm, without rupture; I70.209 Unspecified atherosclerosis of native arteries of extremities, unspecified extremity; Z21 Asymptomatic human immunodeficiency virus [HIV] infection status
CPT/HCPCS: 36415; 75635-TC; 76000-TC-FY; 78452-TC; 80048; 80053; 80061; 83735; 84100; 85025; 85027; 85610; 85730; 86359; 86360; 86850; 86900; 86901; 93005; 93010; 93017; 93306-TC; 94760; 99285-25; A9502; C1760; C1876; C2623; J2785

== ENCOUNTER 2024-12-26 11:11 | Emergency (ER) | payer OTHER ==
[2024-12-26 11:26] VITALS: BP 122/84; PULSE 68; RESP 20; TEMP 98.2; BMI 26.2
[2024-12-26] MEDS ORDERED: ACETAMINOPHEN 500 MG TABLET (FP) ONE (11:41)
[2024-12-26] MEDS: ACETAMINOPHEN 500 MG TABLET (FP) PO ONE (11:53)
== END 2024-12-26 12:45 | disposition home or self-care (01) ==
LOC: JER 11:11
DX: S20.212A Contusion of left front wall of thorax, initial encounter (principal); M79.675 Pain in left toe(s); W10.9XXA Fall (on) (from) unspecified stairs and steps, initial encounter; Y92.009 Unspecified place in unspecified non-institutional (private) residence as the place of occurrence of the external cause
CPT/HCPCS: 71046-TC-FY; 71101-TC-LT-FY; 73660-TC-LT-FY; 99284-25